=== PATIENT | male | born 1995 | race African-American/Black ===

== ENCOUNTER 2018-11-13 07:01 | Emergency (ER) | payer OTHER ==
[~2018-11-13] VITALS: Ht 193 cm; Wt 138.0 kg
[2018-11-13 07:49] VITALS: BP 164/109
--- NOTE | 2018-11-13 07:49 | NUR ---
Patient/Caregiver given discharge instructions and they have confirmed that they understand the instructions. Patient ambulatory with steady gait.
== END 2018-11-13 07:50 | disposition home or self-care (01) ==
LOC: ED 07:44
DX: S46.212A Strain of muscle, fascia and tendon of other parts of biceps, left arm, initial encounter (principal); X50.9XXA Other and unspecified overexertion or strenuous movements or postures, initial encounter; Y93.89 Activity, other specified; Y92.009 Unspecified place in unspecified non-institutional (private) residence as the place of occurrence of the external cause; Y99.8 Other external cause status
CPT/HCPCS: 93005; 99283